=== PATIENT | female | born 1970 | race Asian ===

== ENCOUNTER 2019-06-25 09:08 | Outpatient (CLI) | payer MEDICAID ==
[~2019-06-25] VITALS: Ht 152.4 cm; Wt 53.5 kg
[2019-06-25 09:19] VITALS: BP 108/76
[2019-06-25] MEDS ORDERED: LOSARTAN POTAS100 MG ORAL (15:54)
[2019-06-25] MEDS ORDERED: ATORVASTATIN CA10 MG ORAL (15:54)
--- NOTE | 2019-06-25 17:16 | Consultation ---
DATE OF CONSULTATION: 06/25/2019 CHIEF COMPLAINT: Referral for screening colonoscopy. PAST MEDICAL HISTORY: 1. Hypertension. 2. Hypercholesteremia. 3. PAST SURGICAL HISTORY: Hysterectomy. MEDICATIONS: Lovastatin and atorvastatin . FAMILY HISTORY: Noncontributory. SOCIAL HISTORY: The patient denies any tobacco, alcohol, or drug abuse. ALLERGIES: No known drug allergies. PHYSICAL EXAMINATION: VITAL SIGNS: Temperature 97.7, blood pressure 109/76, pulse 67, and respirations 20. HEENT: Normocephalic and atraumatic. Sclerae anicteric. NECK: Supple. No evidence of obvious lymphadenopathy. CARDIOVASCULAR: Regular rate and rhythm. Plus S1 and S2. No obvious murmur. LUNGS: Clear to auscultation bilaterally. ABDOMEN: Positive bowel sounds. Soft and nontender. No rebound. No guarding. No peritoneal sign. EXTREMITIES: No cyanosis. No clubbing. No edema. ASSESSMENT AND PLAN: The patient is a 48-year-old female referred for screening colonoscopy. The patient was informed of the risks and benefits of procedure. The prep was given to her. Waiting for authorization to schedule her. Cristino Leonardo M.D. DR: Hernando JOB#: [id number] CC:
== END 2019-06-25 14:18 | disposition home or self-care (01) ==
LOC: PAN 09:08
DX: I10 Essential (primary) hypertension (principal); E78.00 Pure hypercholesterolemia, unspecified; Z90.710 Acquired absence of both cervix and uterus; Z79.899 Other long term (current) drug therapy